=== PATIENT | female | born 1995 | race Caucasian/White ===

== ENCOUNTER 2018-03-22 12:49 | Emergency (ER) | payer SELFPAY ==
[2018-03-22] MEDS ORDERED: diPHENhydraMINE IV* 50 MG/ML 1 ml VIAL (BENADRYL) SLOW PUSH ONE (13:22)
[2018-03-22] MEDS ORDERED: NS 0.9% 1000 ML* 1,000 ML IV ONE ×2 (13:22→13:51)
[2018-03-22] MEDS ORDERED: PROCHLORPERAZINE INJ 5 MG/ML 2 ML VIAL IV ONE (13:22)
[2018-03-22] MEDS ORDERED: Prochlorperazine TAB* 5 MG PO ONE (13:41)
--- NOTE | 2018-03-22 13:59 | UC ---
Nausea/Vomiting/Diarrhea HPI - HPI Summary HPI Summary: 23 year old female presents with onset of nausea, vomiting, and diarrhea 2 days ago. Associated with epigastric "pressure" and lightheadedness. States vomiting with any PO intake. Last emesis around 10 am this morning. Had 2 episodes of watery diarrhea yesterday. None today. Denies fever, chills, chest pain, palpitations, shortness of breath, dysuria, frequency, urgency, hematemesis, or blood in stool. No recent antibiotic use, travel out of the country, consumption of raw or undercooked meat or seafood. - History of Current Complaint Chief Complaint: UCGI Stated Complaint: VOMITING,SHAKY Time Seen by Provider: 03/22/18 13:12 Hx Obtained From: Patient Hx Last Menstrual Period: currently Onset/Duration: Sudden Onset, Lasting Days - 2 Severity Currently: Moderate Pain Intensity: 5 Location: Epigastric - Pressure Aggravating Factor(s): Food Alleviating Factor(s): Nothing Nausea/Vomiting Presence: Nauseated, Vomiting Nausea/Vomiting Duration: 36-48 hours Vomiting Characteristics: Nonbilious Diarrhea Presence: Yes Diarrhea Characteristics: Watery - Allergies/Home Medications Allergies/Adverse Reactions: Allergies Allergy/AdvReac Type Severity Reaction Status Date / Time azithromycin [From Zithromax] Allergy Intermediate Rash Verified 03/22/18 13:08 erythromycin base Allergy Intermediate Rash Verified 03/22/18 13:08 Penicillins Allergy Intermediate Rash Verified 03/22/18 13:08 PMH/Surg Hx/FS Hx/Imm Hx Previously Healthy: Yes Psychological History: Anxiety, Depression - Surgical History Surgical History: Yes Surgery Procedure, Year, and Place: [facility] & A. EAR TUBES - Family History Family History: Mother cholecystitis with gall bladder removal age 27 - Social History Occupation: Employed Full-time Lives: Alone Alcohol Use: None Substance Use Type: None Smoking Status (MU): Never Smoked Tobacco Household Exposure Type: Cigarettes - Immunization History Most Recent Influenza Vaccination: FALL 2013 Vaccination Up to Date: Yes Review of Systems All Other Systems Reviewed And Are Negative: Yes Constitutional: Negative: Fever, Chills Respiratory: Negative: Shortness Of Breath, Cough Cardiovascular: Negative: Palpitations, Chest Pain Gastrointestinal: Positive: Abdominal Pain, Vomiting, Diarrhea, Nausea Genitourinary: Negative: Dysuria, Hematuria, Frequency, Urgency Is Patient Immunocompromised?: No Physical Exam - Summary Physical Exam Summary: GENERAL APPEARANCE: Well developed, well nourished, and alert. Appears to be in no acute distress. EARS: External auditory canals and tympanic membranes clear, hearing grossly intact. NOSE: No nasal discharge. THROAT: Oral cavity and pharynx normal. No inflammation, swelling, exudate, or lesions. Teeth and gingiva in good general condition. NECK: Neck supple, non-tender without lymphadenopathy. CARDIAC: Normal S1 and S2. No S3, S4 or murmurs. Rhythm is regular. Tachycardic. There is no peripheral edema, cyanosis or pallor. Extremities are warm and well perfused. Capillary refill is less than 2 seconds. LUNGS: Clear to auscultation and percussion without rales, rhonchi, wheezing or diminished breath sounds. ABDOMEN: Positive bowel sounds. Soft and nondistended. Mild RUQ tenderness without guarding or rebound. No masses or hepatosplenomegally. No CVA tenderness. MUSKULOSKELETAL: ROM intact to all extremities. No joint erythema or tenderness. Normal muscular development. Normal gait. EXTREMITIES: No significant deformity or joint abnormality. No edema. Peripheral pulses intact. NEUROLOGICAL: CN II-XII intact. Strength and sensation symmetric and intact throughout. Reflexes 2+ throughout. Cerebellar testing normal. SKIN: General pallor. Texture and turgor normal with no lesions or eruptions. Triage Information Reviewed: Yes Vital Signs: Initial Vital Signs Temp 97.4 F 03/22/18 13:01 Pulse 77 03/22/18 13:01 Resp 20 03/22/18 13:01 BP 97/52 03/22/18 13:01 Pulse Ox 98 03/22/18 13:01 Vital Signs Reviewed: Yes Re-Evaluation - Re-Evaluation First Eval Re-Evaluation Time: 14:32 Change: Unchanged Comment: Patient has received 2 liters of IV fluids, compazine, and diphenhydramine and reports no improvement in symptoms. Her VS are stable however blood pressure remains a little soft and she still complains of lightheadedness. I am recommending further evaluation in the ED at this time. She and her parents are electing to transfer via private vehicle. Naus/Vom/Diarrhea Course/Dx - Course Course Of Treatment: 23 year old female presents with onset of nausea, vomiting , and diarrhea 2 days ago. Associated with epigastric "pressure" and lightheadedness. States vomiting with any PO intake. Last emesis around 10 am this morning. Had 2 episodes of watery diarrhea yesterday. None today. Denies fever, chills, chest pain, palpitations, shortness of breath, dysuria, frequency , urgency, hematemesis, or blood in stool. No recent antibiotic use, travel out of the country, consumption of raw or undercooked meat or seafood. Afebrile. Mildly hypotensive without tachycardia. Exam revealed mild RUQ tenderness without guarding or rebound. Discussed with patient that with the RUQ tenderness need to consider possible gall bladder disease which would require eval in the ED. She is requesting to receive IV fluids and antiemetics here to see if symptoms improve. Patient received 2 liters of NS, compazine 5 mg PO, and 25 mg diphenhydramine IV without improvement in symptoms. She remained mildly hypotensive without tachycardia. It was recommended that she be evaluated further in the ED. She is electing to transfer via private vehicle with her parents to drive. - Differential Dx/Diagnosis Differential Diagnoses - Female: Gall Bladder Disease, Urinary Tract Infection, Vomiting, Diarrhea, Peptic Ulcer Disease, Gastritis, Cholelithiasis, Cholecystitis Provider Diagnosis: Abdominal pain, Nausea & vomiting, Diarrhea Condition At Discharge: Stable - Physician Notification/Consults Discussed Case/Management/Disposition Of Patient With: AMEE Landon - [facility] ED Time Discussed With Above Provider: 14:40 Instructed by Provider To: MD Will See In ED Discharge - Sign-Out/Discharge Documenting (check all that apply): Patient Departure All imaging exams completed and their final reports reviewed: No Studies - Discharge Plan Condition: Stable Disposition: HOME-RECOMMEND TO ED Patient Education Materials: Acute Nausea and Vomiting (ED), Acute Diarrhea (ED ), Acute Abdominal Pain (ED) Referrals: No Primary Care Phys,NOPCP [Primary Care Provider] - Additional Instructions: Your were given 2 liters of IV fluids as well as a medication called prochlorperazine (Compazine) and diphenhydramine (Benadryl) without improvement in your symptoms. I am recommending that you go to the emergency room for further evaluation. Please go immediately to the emergency room and do NOT eat or drink anything until you have been evaluated and cleared to do so. - Billing Disposition and Condition Condition: STABLE Disposition: Home-Recommend to ED
[2018-03-22 14:30] VITALS: BP 95/52
== END 2018-03-22 14:58 | disposition home health service (06) ==
LOC: UCCORT 12:49
DX: R10.13 Epigastric pain (principal); R11.2 Nausea with vomiting, unspecified; R19.7 Diarrhea, unspecified; Z88.0 Allergy status to penicillin; Z88.1 Allergy status to other antibiotic agents
CPT/HCPCS: 96361; 96374; 99212; A9270-GY; G0463; J0780; J1200